=== PATIENT | male | born 1935 | race Two or more races ===

== ENCOUNTER → 2024-03-03 08:56 | Outpatient (REF) | payer OTHER, SELFPAY ==
--- NOTE | 2024-03-04 12:23 | TAVREVAL ---
TAVR Evaluation
STS %
STS: 6.86
Transthoracic Echocardiogram
Transthoracic Echocardiogram Date: 11/01/23
P/M: 94/57
SHRAVAN: 0.8
AI: none
EF %: 65
MR/MAC: mild MAC, trace MR
Catherization
Catherization Date: 01/31/24
SHRAVAN: 0.7
Findings: well compensated MV CAD with widely patent BANEGAS bypass graft
CAT Scan
CAT Scan Date: 03/03/24
Frailty
5 m gait: 14.97 sec
MMSE ____/30: n/a
KCCQ: complete
Physician Visits
Date of Visit CT surgeon: Ibrahima: 03/03/24
Date of Visit Interventionalist:Harley/Jorge/Shady/Lamonte: 12/26/23
Primary Airline Security Representative Name: Wendy
Date of Visit Primary Airline Security Representative: 05/30/23
PCP Name: Gavarone
Dentist Name: Dentures
Plan
Plan:
02/02/2024: Patient seen in consult with Dr. Alexandra. Reviewed the pathophysiology of aortic stenosis with the patient and his daughter. Explained the treatment options of SAVR and TAVR. Explained the TAVR evaluation process including follow up BMP, CT
TAVR scan, CT surgery consult and Heart Team discussion. Provided with script for BMP for next week, script and appointment for CT TAVR of abd/pelvis with OID for 03/16 (Chest was completed this morning) and a copy of the TAVR education booklet with
contact information. Allowed for and answered questions.
== END ==
LOC: RAD 08:56
PROVIDERS: ATTENDING PHYSICIAN Nurse Practitioner Adult Health; FAMILY PHYSICIAN Internal Medicine
DX: I35.0 Nonrheumatic aortic (valve) stenosis (principal)
CPT/HCPCS: 75572; Q9967

== ENCOUNTER 2024-03-16 08:31 | Outpatient (RCR) | payer OTHER, SELFPAY ==
[2024-03-03 08:45] VITALS: BP 131/62
[2024-03-03] MEDS: NSS 1000 IV (09:00)
[2024-03-03 12:44] VITALS: BP 108/62
[2024-03-16 08:44] VITALS: BP 129/64
[2024-03-16] MEDS: NSS 500 IV (08:55)
== END 2024-03-17 08:02 | disposition home or self-care (01) ==
LOC: OID 08:31
PROVIDERS: ATTENDING PHYSICIAN Nurse Practitioner Adult Health
DX: I35.0 Nonrheumatic aortic (valve) stenosis (principal)
CPT/HCPCS: 74174; 96360; 96361; Q9967

== ENCOUNTER 2024-03-26 07:21 | Inpatient (IN) | payer OTHER, SELFPAY ==
[2024-03-23 13:15] LABS: % Basophils 0.6 % (0-2); % Eosinophils 1.4 % (0-6); % Immature Granulocytes 0.8 % (0-0.5); % Monocytes 7.4 % (1.7-9.3); % Neutrophils 71.8 % (42.2-75.2); Absolute Basophils 0.1 10^3/uL (0-0.2); Absolute Eosinophils 0.1 10^3/uL (0-0.7); Absolute Immature Granulocytes 0.1 10^3/uL (0-0.05); Absolute Lymphocytes 1.4 10^3/uL (1.2-3.4); Absolute Monocytes 0.6 10^3/uL (0.1-0.6); Absolute Neutrophils 5.6 10^3/uL (1.4-6.5); Hematocrit 49.3 % (39.0-52.0); Mean Corp Hgb Conc. 32.5 g/dL (33.0-37.0); Mean Corpuscular Hgb 28.6 pg (27.0-31.0); Mean Corpuscular Volume 88.2 fL (80.0-94.0); Mean Platelet Volume 10.9 fL (7.4-10.4); Nucleated Red Blood Cells % 0 % (-); Platelet Count 148 10^3/uL (130-400); Red Blood Cell Count 5.59 10^6/uL (4.70-6.10); Red Cell Dist. Width 14.5 % (11.5-14.5); White Blood Cell Count 7.7 10^3/uL (4.8-10.8)
[2024-03-23 13:29] LABS: ALT (SGPT) 16 U/L (0-50); AST (SGOT) 31 U/L (17-59); Albumin 5.1 g/dl (3.5-5.0); Alkaline Phosphatase 44 U/L (38-126); Blood Urea Nitrogen 36 mg/dl (9-20); Calcium 9.6 mg/dl (8.4-10.2); Carbon Dioxide 29 mmol/L (22-30); Chloride 98 mmol/L (98-107); Direct Bilirubin 0.3 mg/dl (0.0-0.4); Glucose 161 mg/dl (70-99); INR 1.04; PT 13.4 Sec (11.4-14.6); Potassium 4.6 mmol/L (3.5-5.1); Sodium 142 mmol/L (135-145); Total Bilirubin 1.1 mg/dl (0.2-1.3); Total Protein 7.9 g/dl (6.3-8.2); eGFR 38.06
[2024-03-23 13:30] LABS: APTT 31.2 Sec (23.4-35.0)
[2024-03-23 13:37] LABS: Glycohemoglobin (HgbA1c) 8.3 % (4.0-5.6)
--- NOTE | 2024-03-23 14:07 | CM ---
Addendum entered by Esther Manzano RN 03/24/24 10:55:
Reviewed preoperative and postoperative instructions, along with restrictions. Gave patient 2 soaps, along with showering instructions.
Original Note:
Chart reviewed. Met with the patient in [facility]. Patient is American speaking, daughter was with the patient to translate. Patient lives with his in a 2 STH, ambulates with a SPC. Patient has 1st floor set up, but does go upstairs to shower.
Patient with a supportive daughter and son. Patient is not current with VN. Plan is for the patient to return home with CT Transitional RN.
[2024-03-23 14:13] VITALS: BMI 29.8
[2024-03-23 14:15] LABS: Urine Albumin Negative (Neg - Trace); Urine Bilirubin Negative (Negative); Urine Character Clear (Clear); Urine Color Yellow; Urine Glucose 3+ (Negative); Urine Ketone Negative (Negative); Urine Leukocyte Negative (Negative); Urine Nitrite Negative (Negative); Urine Occult Blood Negative (Negative); Urine Urobilinogen Negative (Neg - 1+)
[2024-03-26] VITALS (20 sets, daily range): BP systolic 104–140; BP diastolic 41–68; BMI 29.8
[2024-03-26 07:48] LABS: Glucose - Point of Care 144 mg/dl (70-99)
[2024-03-26] MEDS: LOW STRENGTH ASPIRIN 81 MG PO (08:21)
[2024-03-26] MEDS: BACTROBAN 2% OINTMENT 1 APPLIC NASAL (08:21)
--- NOTE | 2024-03-26 10:00 | ITS.CL.TAVR ---
Building Maintenance Custodian - TAVR Report
TAVR PRocedure
Procedure Report:
TRANSCATHETER AORTIC VALVE REPLACEMENT REPORT
�
Date: 03/26/2024
Referring physician: Maikol Nguyen MD
�
Operators:
global commodity manager: Eligio Souza MD
Cardiac surgeon: Sunil Alexandra MD
�
Procedure:
Conscious sedation was provided by anesthesia. Using a micropuncture technique, 6F sheaths were placed in the right radial artery and RFV. A transvenous pacemaker was advanced to the RV and excellent thresholds obtained. A pigtail catheter was
advanced to the aortic root where low volume injections were performed to identify an appropriate angle for valve deployment. Access was then obtained in the left femoral artery using a micropuncture technique. A 6Fsheath was placed and angiography
confirmed a GAUGE MAKER puncture site. Heparin 3000 units was administered.��Two perclose sutrures were preset using the preclose technique. An 8F sheath was placed in the LFA and an Amplatz super stiff wire advanced into the thoracic aorta. The ileofemoral
vessels were dilated using the Dyer dilator. An Dyer E sheath was advanced into the descending thoracic aorta. Additional heparin 3500 units was administered. The valve was crossed using a diagnostic 6F AL2 catheter and a straight wire. An
Amplatz extra stiff wire with a homemade curve was placed in the LV apex. Balloon aortic valvuloplasty was not performed.
An Dyer 26�mm Ronn S3 valve was then advanced through the E sheath and prepared for transit around the aortic arch. The valve was carefully advanced across the aortic annulus and deployed during rapid ventricular pacing. Echocardiography and
aortography confirmed an excellent result. The mean gradient was 4 mmHg with no detectable aortic insufficiency. The valve deployment system was removed. The Dyer E sheath was then removed and hemostasis obtained with the two perclose sutures.
Final angiography demonstrated no evidence of ileofemoral dissection/perforation and good runoff below the common femoral artery.��The pacemaker was removed and the RFV sheath removed with manual compression for hemostasis. The right radial artery
sheath was removed using an armband
�
Radiation (mGy): 414
DAP (cm2.Gy): 45.2
Fluoroscopy time: 12.9 minutes
�
Conclusions: Successful placement of�26�mm Ronn S3 aortic valve via left transfemoral approach with no acute complications.
�
Copy to: Maikol Dumont MD, Kaya Zimmerman, DO
--- NOTE | 2024-03-26 11:22 | W.CVOR.SURPR ---
CVOR Surgeon Immed Pre Op
-
I have examined this patient prior to performance of the scheduled procedure.
The patient's condition is unchanged from the time of the dictated/written History and
Physical and the patient is able to undergo the scheduled procedure.
--- NOTE | 2024-03-26 11:22 | W.IMMPOSTOP ---
Addendum entered and electronically signed by Sunil Alexandra MD 03/26/24 11:39:
[id number]
CORRECTIONS:
Both an AL-1 & AL-2 catheters were utilized w/ the AL-2/soft-tip straight combination being successful in crossing the stenotic AV
An 8Fr angioseal WAS NOT utilized in this case w/ the L PRODUCTION MACHINE OPERATOR managed w/ only perclose sutures x 2 and manual pressure
Original Note:
Surgical Immed Post Op Note
-
STRUCTURAL HEART PROCEDURE NOTE: TAVR
Preoperative Dx:
Severe aortic stenosis (P/M:94/57; SHRAVAN 0.8)
CAD s/p prior CABG @ [facility] in 2000; ANAMARIA to RCA 2016
PAD
HTN/HLD
GERD
BPH
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
Postoperative Dx:
Same
Procedures:
1) R RA access w/ tactile & fluoroscopic guidance, micropuncture technique, 6Fr sheath placement
2) R CFV access w/ fluoroscopic guidance, micropuncture technique, 6Fr sheath placement
3) Placement of temporary RV pacing wire w/ threshold testing
4) Placement of pigtail catheter in RCC w/ limited aortography & confirmation of co-planar fluoroscopic angles
5) L PRODUCTION MACHINE OPERATOR access (1st pass) w/ tactile & fluoroscopic guidance, micropuncture technique, 6Fr sheath placement (partial heparinization)
6) Limited angiography of L ileofemoral system
7) Perclose placement x 2 into L PRODUCTION MACHINE OPERATOR
8) Serial dilation of L ileofemoral system w/ subsequent placement of Dyer E-sheath (systemic heparinization)
9) Wire purchase across stenotic AV (AL-1; soft-tip straight, table J-wire, LVEDP assessment (17mmHg), extra-stiff wire)
10) L TF TAVR w/ placement of 26mm SHANNON 3 valve
11) Completion aortography
12) Completion TTE (no AI/PVL, mean gradient 4mmHg)
13) Removal of valve delivery system
14) R RA pigtail placement into distal abdominal aorta
15) Removal of Dyer E-sheath w/ L PRODUCTION MACHINE OPERATOR mgmt w/ perclose sutures x 2; 8Fr angioseal; manual pressure\\
16) Completion L ileofemoral angiography
17) Removal of temporary pacing wire
18) Removal of R RA 6Fr sheath w/ placement of RA band
19) Removal of R CFV sheath (protamine administration)
Spiral Winder:
Dr. Lorenzo Souza
Cardiac Surgeon:
Dr. Sunil Alexandra
Anesthesia:
MAC w/ local to B/L groins & R wrist
Cath Data:
Start: 1020hrs, Deploy: 1104hrs, End: 1119hrs
FT: 12.9min, mGy: 414.99, DAP: 45.2804, Contrast: 48mL
Post-TTE: mean gradient 4mmHg, no AI/PVL
Implants:
Dyer [employer], SHANNON 3 valve; 26mm; SN: [id number]
Perclose x 2 - L PRODUCTION MACHINE OPERATOR
Complications:
None
Condition:
Stable/guarded to recovery
--- NOTE | 2024-03-26 12:10 | PTCARENOTE ---
Patient came out to bay 8 from Php Programmer room 1. HR 45 Currently in heart block. EKG performed to verify. aware. CT PA made aware. Levo gtt infusing per protocol. Patient Alert but sleepy. Will continue to monitor.
--- NOTE | 2024-03-26 12:12 | W.PN.UPDATE ---
Update Note
Progress Note Update
Reviewed Mr. Thibodeaux with the heart team in the preTAVR SDM meeting and confirmed a 26 mm S3 via (L) TF access. Patient will resume aspirin post TAVR. LVEDP 17mmHg. #26mm S3 (Serial# [id number]) successfully deployed via left transfemoral access. Post
implant MG 4mmHg.
[2024-03-26] MEDS: ANCEF 10 IV (13:55)
[2024-03-26] MEDS: ANCEF IV (13:56)
--- NOTE | 2024-03-26 15:08 | PTCARENOTE ---
Pt received post TAVR at 1330. Pt awake, alert and oriented. Bilateral groin sites WNL. Right rad band intact with good radial pulse. Room air 97%. Heart rate in the 30's to 40's, Mobitz I with some Mobitz II. Neuro checks WNL.
--- NOTE | 2024-03-26 15:36 | CM ---
pt in OR today, cm following
[2024-03-26] MEDS: COZAAR PO (16:21)
[2024-03-26] MEDS: TRICOR PO (16:21)
[2024-03-26] MEDS: PRANDIN PO (16:21)
[2024-03-26] MEDS: ANCEF 5 IV (17:30)
--- NOTE | 2024-03-26 18:00 | PTCARENOTE ---
Pt remains in [facility], rate in the 50's to 70's. Bilateral groin sites dry and intact. Pt refused to get oob and sit in the chair when bedrest was completed.
--- NOTE | 2024-03-26 23:00 | PTCARENOTE ---
Received pt at change of shift. Second degree type 1 heart block on tele with HR in the 50s. BP 140/58. Josiah BABIN at bedside assessing pt. Pt agitated and reluctant to allow assessment. Pt also attempting to remove tele monitor.
Sales Development Director utilized to assess orientation level and explain importance of medical devices. Per policy writer sales, pt answered all orientation questions appropriately and verbalizes understanding of devices and frequent assessments. B/L groin sites with
no complications noted, L with small amount of pink drainage, R c/d/i. Neuro status intact. Josiah BABIN ordered labs and stated she would like another IV placed as precaution due to pts labile HRs. Upon return w/ IV/lab supplies, pt refusing to be
stuck. Refusal documented in [employer] and PA notified.
[2024-03-26 23:48] LABS: Glucose - Point of Care 132 mg/dl (70-99)
[2024-03-26] MEDS: PRANDIN 2 MG PO (23:56)
[2024-03-26] MEDS: LIPITOR 40 MG PO (23:56)
[2024-03-27 04:27] VITALS: BP 148/54
[2024-03-27 04:48] LABS: Hematocrit 45.2 % (39.0-52.0); Hemoglobin 15.1 g/dL (13.0-18.0); Mean Corp Hgb Conc. 33.4 g/dL (33.0-37.0); Mean Corpuscular Volume 89.9 fL (80.0-94.0); Mean Platelet Volume 10.4 fL (7.4-10.4); Platelet Count 112 10^3/uL (130-400); Red Blood Cell Count 5.03 10^6/uL (4.70-6.10); Red Cell Dist. Width 14.3 % (11.5-14.5); White Blood Cell Count 9.3 10^3/uL (4.8-10.8)
--- NOTE | 2024-03-27 05:00 | PTCARENOTE ---
Pt much more agreeable to care and assessments. B/L groin sites with no complications, no change from previous assessment. NSR with first degree AVB on tele with HR 60s-70s. AM EKG and labs obtained. Voiding clear yellow urine in urinal. Call
laird within reach.
[2024-03-27 05:17] LABS: Blood Urea Nitrogen 24 mg/dl (9-20); Calcium 8.7 mg/dl (8.4-10.2); Carbon Dioxide 25 mmol/L (22-30); Chloride 104 mmol/L (98-107); Estimated Creatinine Clearance 35 ml/min; Glucose 81 mg/dl (70-99); Potassium 4.1 mmol/L (3.5-5.1); Sodium 142 mmol/L (135-145); eGFR 48.04
--- NOTE | 2024-03-27 05:54 | W.PN.CT ---
Today's Communication / Plan
-
-pod #1
-neuro and hemodynamically stable (accessed via enterprise business architect)
-rhythm initially was nsr with Wenckebach, then improved- nsr high 60s with long 1st degree AVB. No significant pauses- monitor rhythm
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
-held BP meds last night to avoid hypotension
-Echo today
-current meds (ASA, Lipitor, Tricor, Cozaar, Imdur 60 qd, Lasix 40 qd, Farxiga, Prandin)
-encourage IS
Assessment / Plan
-
- Severe symptomatic - s/p L TF TAVR w/ placement of 26mm SHANNON 3 valve on 03/26/24, pod #1
- Post-TTE: mean gradient 4mmHg, no AI/PVL
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
- CAD s/p prior CABG @ [facility] in 2000; ANAMARIA to RCA 2017
- Chronic diastolic CHF
- PAD
- HTN/HLD
- GERD
- BPH
- CKD 3 (Cr 1.7 preop)
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
Discussed patient care with: Nursing and Care Team
Subjective
-
Date of Service: March 27, 2024
Objective Data
-
PT 13.4 Sec (11.4-14.6) 03/23/24 12:13
INR 1.04 03/23/24 12:13
APTT 31.2 Sec (23.4-35.0) 03/23/24 12:13
Vital Signs
Vital Signs
Temp Pulse Resp BP Pulse Ox
98.2 F 70 16 135/59 96
03/26/24 19:48 03/27/24 00:00 03/26/24 22:21 03/26/24 22:19 03/26/24 22:21
CT Intake/Output/Weight
03/26/24 03/26/24 03/27/24
06:59 18:59 06:59
Intake Total 900 / 900
Output Total 600 / 650 50 / 650
Balance 300 / 250 -50 / 250
SaO2: 96
Physical Exam
-
General: Awake and AOx3
Cardiovascular: Regular rate & rhythm, No Murmurs and No Rub
Respiratory: Decreased Breath Sounds
Incision: Other (groins are cdi, soft, nontender, no hematoma b/l)
Extremities: Other (trace edema b/l)
Data Reviewed
-
Lab Results: Results Reviewed
Medications: Active Meds Reviewed
Chest X-Ray: Report Reviewed and Image Reviewed
ECG: Report Reviewed and Image Reviewed
[2024-03-27 07:17] VITALS: BP 154/52
[2024-03-27 07:20] LABS: Glucose - Point of Care 103 mg/dl (70-99)
[2024-03-27] MEDS: FARXIGA 10 MG PO (08:49)
[2024-03-27] MEDS: LASIX 40 MG PO (08:49)
[2024-03-27] MEDS: PRANDIN 2 MG PO (08:50)
[2024-03-27] MEDS: VITAMIN D3 (cholecalciferol) 50 MCG PO (08:50)
[2024-03-27] MEDS: ASPIR LOW (ENTERIC COATED) 81 MG PO (08:50)
[2024-03-27] MEDS: TRICOR 48 MG PO (08:50)
[2024-03-27] MEDS: COZAAR 50 MG PO (08:51)
[2024-03-27] MEDS: VITAMIN B-12 500 MCG PO (08:53)
[2024-03-27] MEDS: FOLVITE 0.4 MG PO (08:54)
[2024-03-27] MEDS: IMDUR (EXTENDED RELEASE) 60 MG PO (08:54)
[2024-03-27 11:12] VITALS: BP 110/51
--- NOTE | 2024-03-27 12:01 | W.DCSUMMARY ---
Discharge Summary
Discharge Data
Date of Admission: 03/26/24
Date of Discharge: 03/27/24
-
Pending Results: No
Hospital Course
Patient is a 89-year-old Vincentian gentleman who was admitted electively to [facility] for a transfemoral TAVR. He speaks Georgian as well as Vincentian. He was diagnosed with worsening aortic stenosis and seen in consultation by cardiothoracic
surgery who felt patient was a good candidate for a transfemoral TAVR.
Past medical history significant for coronary artery disease status post CABG in 2000 and previously stenting in 2017. Hyperlipidemia, chronic kidney disease stage III, PAD, CHF, GERD, BPH. Former smoker quit 40 years ago.
Patient was admitted on the morning of 03/26/2024 later that morning was brought to the cardiac Compensation And Hris Analyst where he underwent a left transfemoral TAVR with a number 26 mm SHANNON 3 valve. LVEDP was measured at 17 mmHg. He tolerated procedure well and
echo showed a postprocedure mean gradient of 4 mmHg. He was transferred to the IVU where he arrived in a hemodynamically stable condition. His first night in the IVU was uneventful. He did have a brief period of WenkeBach which resolved by the
following morning. He was able to ambulate without difficulty to the end of the perdomo and was felt to be stable for discharge. Bilateral groins were without hematoma or bleeding and distal pulses were intact bilaterally.
Chest x-ray on postoperative day #1 was essentially clear. EKG showed sinus rhythm with first-degree AV block. Echo performed on postoperative day #1 showed a ejection fraction of 65 to 70%. No aortic insufficiency was seen. Peak and mean
gradients were measured 15/04.
He was able to be discharged in the afternoon of 03/27/24. Vital signs at time of discharge, he was afebrile, blood pressure 148/54, pulse 70 and regular and room air O2 sat was 96%.
Discharge labs were as follows white blood cell count 9.3, hematocrit 45.2, hemoglobin 15.1, platelets 112. Sodium 142, potassium 4.1, BUN 24, creatinine 1.4, glucose 81.
He was given a full set of discharge instructions along with follow-up appointments to see his solar installation technician and primary care physician. Dr. Maikol Srivastava and Dr. Zimmerman. He was instructed to call our office with any concerns or questions.
Discharge Plan
-
Patient Disposition: Home (Routine Discharge)
Discharge Diagnosis/Procedures: TF-TAVR/aortic stenosis
Condition: Fair
Diet: Low Cholesterol and 2 Gram Sodium
Activity: As tolerated
Driving Restrictions: No driving for 1 week
Bathing Restrictions: OK to Shower
Others Tests: Follow Up Echocardiogram: 04/28/[address] Nguyen's office.
Other Services: Cardiac Rehab
Wound Care: Please do not apply lotions, creams or powders to groin areas. Call your doctor if increased pain, redness, swelling or drainage in your groin areas.
Specialty Instructions: Weigh Daily- Call MD for wt gain/loss 3 lbs overnight/5 lbs in 1 week
Referrals:
CT Transitional Care Nurse [Outside]
(
The Cardiothoracic Transitional Care Nurse will call you to set up a visit in 1-2 days.)
Kaya Zimmerman DO [Primary Care Provider] -
Maikol Nguyen MD [Active] - 04/29/24 9:20 am
Prescriptions:
New
acetaminophen 325 mg Tablet
650 mg PO Q4HPRN PRN (Reason: YUN, mild pain, or fever >101F) Qty: 0 0RF
Continued
losartan 50 mg Tablet
50 mg PO DAILY
furosemide [Lasix] 40 mg Tablet
40 mg PO DAILY
atorvastatin [Lipitor] 40 mg Tablet
40 mg PO HS
donepezil 5 mg Tablet
5 mg PO HS
aspirin 81 mg Tablet,Delayed Release (Dr/Ec)
81 mg PO DAILY
acetaminophen 500 mg Tablet
500 mg PO Q6H PRN (Reason: pain)
isosorbide mononitrate 60 mg Tablet Extended Release 24 Hr
60 mg PO DAILY
repaglinide 1 mg Tablet
2 mg PO BID
naproxen sodium [Aleve] 220 mg Capsule
220 mg PO Q12H PRN (Reason: pain)
icosapent ethyl [Vascepa] 1 gram Capsule
2 g PO BID
Jardiance 25 mg Tablet
25 mg PO DAILY
Gemtesa 75 mg Tablet
75 mg PO DAILY
fenofibrate 40 mg Tablet
48 mg PO DAILY
vitamin C38-gyqro acid 500-400 mcg Tablet
1 tab PO DAILY
cholecalciferol (vitamin D3) [Vitamin D3] 50 mcg (2,000 unit) Tablet
50 mcg PO DAILY
Discharge Orders:
Discharge Patient (As Directed); Ordered 03/27/24
Ordered By: Kumar Avina
Care Plan Goals
Care Plan Goals:
Problem: Readiness for enhanced knowledge related to diagnosis and treatment plan
Goal: Understand your diagnosis and treatment plan needs, including medications if applicable.
Instructions: Know your diagnosis, underlying causes and treatment plan options, including medications if applicable. Consult with your health care team to learn about your diagnosis and treatment plan, including medications if applicable.
Discharge Date and Time
Print Language: Vincentian
[2024-03-27 13:26] LABS: ACT-LR - POC 340 Seconds (116-155)
--- NOTE | 2024-03-27 14:05 | PTCARENOTE ---
Pt received this am with no c/o of any pain or sob. Room air sat 98%. Assisted oob to the chair and BR with the walker. Gait slow but steady. Bilateral groin dressings dry and intact with no hematoma. Pt discharged to home. Discharge instructions
given and reviewed with pt's daughter who translated to pt in Kazakh.
--- NOTE | 2024-03-27 14:11 | CM ---
CM following for DC planning needs.
Pt. for DC to home today.
Pt. is being recommended for a RW. He is agreeable to this. Dtr. also requesting a transport chair.
Ordered a RW thru [employer]. Will be delivered to the home.
Advised dtr. on how to obtain a transport chair.
Plan is for home w/ CT Transitional Care RN.
Dtr. to transport home.
[2024-03-27 15:34] LABS: ACT-LR - POC > 397 Seconds (116-155)
== END 2024-03-27 14:12 | disposition home or self-care (01) | DRG 267 ==
LOC: IVU 07:21
PROVIDERS: Physician Assistant Medical; ADMITTING PHYSICIAN Thoracic Surgery (Cardiothoracic Vascular Surgery); CONSULT PHYSICIAN Internal Medicine Cardiovascular Disease; PRIMARYCARE PHYSICIAN Internal Medicine
PROC: 02RF38Z Replacement of Aortic Valve with Zooplastic Tissue, Percutaneous Approach (ICD-10-PCS; 2024-03-26)
DX: I35.0 Nonrheumatic aortic (valve) stenosis (principal); I13.0 Hypertensive heart and chronic kidney disease with heart failure and stage 1 through stage 4 chronic kidney disease, or unspecified chronic kidney disease; I25.10 Atherosclerotic heart disease of native coronary artery without angina pectoris; I73.9 Peripheral vascular disease, unspecified; E78.5 Hyperlipidemia, unspecified; K21.9 Gastro-esophageal reflux disease without esophagitis; I44.0 Atrioventricular block, first degree; N18.30 Chronic kidney disease, stage 3 unspecified; I50.9 Heart failure, unspecified; N40.0 Benign prostatic hyperplasia without lower urinary tract symptoms; Z79.82 Long term (current) use of aspirin; Z79.899 Other long term (current) drug therapy; Z87.891 Personal history of nicotine dependence; Z95.1 Presence of aortocoronary bypass graft; Z95.5 Presence of coronary angioplasty implant and graft
CPT/HCPCS: 93308; 33361; 36415; 71045; 71046; 80048; 80053; 81003; 82248; 82962; 83036; 85025; 85027; 85347; 85610; 85730; 86850; 86900; 86901; 87070; 93005; 93306; 93321; 93325; C1760; C1769; C1894